=== PATIENT | male | born 1970 | race Caucasian/White ===

== ENCOUNTER 2020-06-20 11:07 | Emergency (ER) | payer OTHER ==
[~2020-06-20] VITALS: Ht 190.5 cm; Wt 104.3 kg
[2020-06-20] MEDS ORDERED: LISINOPRIL20 MG PO (11:38)
[2020-06-20] MEDS ORDERED: NORCO 7.5-3251 EACH PO (14:19)
== END 2020-06-20 14:45 | disposition home or self-care (01) ==
LOC: ED 11:07
DX: R10.31 Right lower quadrant pain (principal); Z91.030 Bee allergy status; Z88.8 Allergy status to other drugs, medicaments and biological substances; Z79.899 Other long term (current) drug therapy
CPT/HCPCS: 72193; 80053; 81001; 85025; 85651; 86140; 96374; 99284-25; A9270; J1885; Q9967

== ENCOUNTER 2020-06-27 10:38 | Emergency (ER) | payer OTHER ==
[~2020-06-27] VITALS: Ht 190.5 cm; Wt 104.3 kg
[~2020-06-27 10:38] MED LIST: LISINOPRIL20 MG PO; NORCO 7.5-3251 EACH PO
--- OUTSIDE RECORDS SUMMARY | 2020-06-27 10:42 | XMS ---
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 - 2 Visits in 30 Days CARE PROVIDERS There are no care providers on record at this time. Ellis has no Care Guidelines for this patient. Damon VISIT COUNT (12 MO.) [address] [facility] TOTAL 2 NOTE: Visits indicate total known visits. ED/C VISIT TRACKING (12 MO.) 06/27/2020 10:[address] [facility] 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
[2020-06-27] MEDS ORDERED: COLCHICINE0.6 M1 PO (11:09)
[2020-06-27] MEDS ORDERED: AUGMENTIN 875-1 EACH PO (11:09)
[2020-06-27] MEDS ORDERED: PRINIVIL20 MG PO (11:14)
== END 2020-06-27 11:21 | disposition home or self-care (01) ==
LOC: ED 10:38
DX: K57.92 Diverticulitis of intestine, part unspecified, without perforation or abscess without bleeding (principal); M10.9 Gout, unspecified; I10 Essential (primary) hypertension; F90.9 Attention-deficit hyperactivity disorder, unspecified type; F17.200 Nicotine dependence, unspecified, uncomplicated; Z91.030 Bee allergy status; Z88.8 Allergy status to other drugs, medicaments and biological substances; Z79.899 Other long term (current) drug therapy
CPT/HCPCS: 99283

== ENCOUNTER 2023-11-24 17:14 | Emergency (ER) | payer OTHER ==
[~2023-11-24] VITALS: Ht 190.5 cm; Wt 85.0 kg
[~2023-11-24 17:14] MED LIST changes: +AUGMENTIN 875-1 EACH PO; +COLCHICINE0.6 M1 PO; +PRINIVIL20 MG PO
[2023-11-24] MEDS ORDERED: HYDROCODONE BIT/ACETAMINOPHEN 5/325 MG 1 TAB HOME.PACK PO ONE (20:00)
[2023-11-24] MEDS ORDERED: HYDROCODON-ACE1 EA10 PO (20:05)
[2023-11-24 20:28] VITALS: BP 137/89
== END 2023-11-24 20:28 | disposition home or self-care (01) ==
LOC: ED 17:14
DX: S46.002A Unspecified injury of muscle(s) and tendon(s) of the rotator cuff of left shoulder, initial encounter (principal); M19.012 Primary osteoarthritis, left shoulder; M10.9 Gout, unspecified; F90.9 Attention-deficit hyperactivity disorder, unspecified type; F17.200 Nicotine dependence, unspecified, uncomplicated; Z91.030 Bee allergy status; X50.0XXA Overexertion from strenuous movement or load, initial encounter; Z88.6 Allergy status to analgesic agent; Z79.899 Other long term (current) drug therapy
CPT/HCPCS: 73030; 99283-25; A9270

== ENCOUNTER 2024-02-26 06:00 | Day surgery (SDC) | payer OTHER ==
[~2024-02-26] VITALS: Ht 190.5 cm; Wt 90.9 kg
[~2024-02-26 06:00] MED LIST changes: +HYDROCODON-ACE1 EA10 PO; +LACTATED RINGER'S 1,000 ML IV SCH
[2024-02-26 06:17] VITALS: BP 170/104
[2024-02-26 06:41] VITALS: BP 137/85
[2024-02-26] MEDS ORDERED: CEFAZOLIN SODIUM 2 GM/20 ML SYR IV SCH (07:00)
[2024-02-26] MEDS ORDERED: IBLOOD GLUCOSE TEST STRIP 1 EA TEST VI PRN ×2 (07:00→09:00)
[2024-02-26] MEDS ORDERED: LIDOCAINE HCL 1% 5 ML SDV INJ ONE (07:00)
[2024-02-26] MEDS ORDERED: TRANEXAMIC ACID 2,000 MG in SODIUM CHLORIDE 0.9% 100 ML IV SCH (07:00)
[2024-02-26] MEDS ORDERED: LIDOCAINE HCL 2% 5 ML SDV ONE (08:04)
[2024-02-26] MEDS ORDERED: Ropivacaine HCl 0.5% 30 ML VIAL ONE (08:04)
[2024-02-26] MEDS ORDERED: MIDAZOLAM HCL 2 MG/2 ML VIAL ONE (08:04)
[2024-02-26] MEDS ORDERED: DEXAMETHASONE SOD PHOS 4 MG/ML VIAL ONE ×2 (08:04→08:49)
[2024-02-26] MEDS ORDERED: propofoL 200 MG/20 ML VIAL ONE ×2 (08:25→08:49)
[2024-02-26] MEDS ORDERED: KETOROLAC TROMETHAMINE 15 MG/ML VIAL IV PRN (08:45)
[2024-02-26] MEDS ORDERED: HYDROCODONE/ACETA 7.5/325 TAB PO PRN (08:45)
[2024-02-26] MEDS ORDERED: NALOXONE HCL 0.4 MG SYR IV PRN ×2 (08:45→09:00)
[2024-02-26] MEDS ORDERED: ondansetron HCL 4 MG/2 ML VIAL ONE (08:49)
[2024-02-26] MEDS ORDERED: fentaNYL citrate 50 MCG/ML SDV IV PRN (09:00)
[2024-02-26] MEDS ORDERED: droPERidol 5 MG/2 ML VIAL IV PRN (09:00)
[2024-02-26] MEDS ORDERED: ondansetron HCL 4 MG/2 ML VIAL IV PRN (09:00)
[2024-02-26] MEDS ORDERED: HYDROCODON-ACE1 EA11 PO (10:18)
--- NOTE | 2024-02-26 10:44 | NUR ---
02/26/24 1044 Gale Barajas 1017 PT ARRIVES TO THE PACU WITH LARGE AMOUNTS OF SNORING NOTED, PERIOD OF APNEA NOTED. JAW THRUST USED TO MAINTAIN AIRWAY. PT RESPS EVEN AND UNLABORED. PT UNAROUSABLE. 1022 O2 MASK REMOVED. O2 SATS MID TO HIGH 90S. 1020 PT WAKES TO TACTILE STIMULI. PT SITS UP IN BED. PT EYES REMAIN CLOSED. PT CONFUSED AND MUMBLING TO HIMSELF. PT EASILY FALLS BACK TO SLEEP WITH HEAD TILTED FORWARD. HOB INCREASED AND SNORING MINIMALLY. 1032 PT WAKES TO VERBAL STIMULI AND OPENS HIS EYES AND LOOKS AROUND ROOM. RN CONTINUES TO REORIENT PT TO PACU. PT REPORTS 4/10 PAIN AND TOLERABLE AT THIS TIME. PT REPORTS BEING COLD AND WARM AIR AND BLANKETS GIVEN.
[2024-02-26 11:07] VITALS: BP 139/103
--- NOTE | 2024-02-26 11:18 | NUR ---
PT ARRIVED BACK TO AT APPROX 1100. REPROT RECEIVED FROM ADMITTING INTERVIEWER/EDITOR AT [facility]. PT REPORTS PAIN 4/10, TOLERABLE. DENIES N/V. ICE WATER, CRACKERS, AND APPLESAUCE GIVEN. CALL LIGHT WITHIN REACH. BILAT SIDERAILS IN PLACE FOR SAFETY. VS TAKEN. BP PER PTS BASELINE. IV SITE PATENT. DRSGS TO LAPRASCOPIC SITES X4 VISUALIZED WITH ADMITTING INTERVIEWER, CDI. PT REPORTS NUMBNESS REMAINS IN L ARM. PT UNABLE TO LIFT ARM, BUT CAN WIGGLE FINGERS. CRYO CUFF IN PLACE. PT DENIES ANY FURTHER QUESTIONS/NEEDS.
--- NOTE | 2024-02-26 11:19 | OR ---
[facility] [address], [place] [address] Signed DATE OF OPERATION: 02/26/2024 SURGEON: Deborah Sheikh MD PREOPERATIVE DIAGNOSIS: Rotator cuff tear, left shoulder. POSTOPERATIVE DIAGNOSIS: Rotator cuff tear, left shoulder. PROCEDURE PERFORMED: Left shoulder arthroscopy with rotator cuff repair. FERMENTER WINE: None. ANESTHESIA: General. BLOOD LOSS: Minimal. IMPLANTS: Four SwiveLock anchors with FiberTape. BRIEF HISTORY: Connor is a 53-year-old gentleman with pain and weakness in his shoulder. He had an acute on chronic injury and was felt indicated for rotator cuff repair after MRI. The risks, benefits, and alternatives were discussed with him and he elected to proceed. DESCRIPTION OF PROCEDURE: Once consent was obtained, he was taken to the operating room. After adequate anesthesia, he was placed in a beach chair position. All downside pressure points were well padded. The shoulder was injected with 15 mL 0.25% Marcaine with epinephrine as was the subacromial space. The standard posterior portal was made and the scope was introduced in the shoulder. ARTHROSCOPIC FINDINGS: Biceps was noted to be absent. The labrum was intact. The glenohumeral surfaces showed minimal chondromalacia. The rotator cuff was noted to be torn from the anterior margin Electronically Signed By: DEBORAH SHEIKH MD 02/26/24 1119 PATIENT NAME: CONNOR ONEIL OPERATIVE REPORT DATE OF : 68 REPORT #: [id number] PHYSICIAN: DEBORAH SHEIKH MD PCP: NO PRIMARY CARE PHYSICIAN REPORT IS CONFIDENTIAL AND NOT TO BE RELEASED WITHOUT AUTHORIZATION [facility] [address], [place] [address] Signed of the supraspinatus about 2 cm posteriorly. It was minimally retracted. The subacromial space showed minimal bursitis. DESCRIPTION OF OPERATION: Standard diagnostic arthroscopy was undertaken as noted above. The scope was then withdrawn, placed in the subacromial space and the bursal remnants were removed. Soft tissue was removed off the tuberosity and the tuberosity was decorticated slightly using the shaver. The edges of the rotator cuff were trimmed back to good tissue. The 1st medial row anchor was placed along the articular margin anteriorly. The 2nd was placed posteriorly about a cm or little bit more. The two fiber tapes on the anchor were then placed through the rotator cuff using a scorpion and brought out separate stab incisions. The middle portal was then used to place the two lateral anchors. The sutures from the two medial anchors were then crisscrossed and placed through the lateral anchors into the tuberosity under appropriate tension. Excellent footprint was obtained. Good repair tissue was noted. The suture ends were all then cut and the shoulder was taken through range of motion. Stable repair was noted. The scope was withdrawn. Portals were closed with 3-0 nylon and dressed with Allevyn and OpSite. He tolerated the procedure well. All sponge, needle, and instrument counts were correct. Deborah Sheikh MD BA/SAVANNAHL /[id number] Copies: ~ Electronically Signed By: DEBORAH SHEIKH MD 02/26/24 1119 PATIENT NAME: CLARICECONNORANGEL DESAI OPERATIVE REPORT DATE OF : 68 REPORT #: [id number] PHYSICIAN: DEBORAH SHEIKH MD PCP: NO PRIMARY CARE PHYSICIAN REPORT IS CONFIDENTIAL AND NOT TO BE RELEASED WITHOUT AUTHORIZATION
--- NOTE | 2024-02-26 12:22 | NUR ---
1220 PT ABLE TO AMBULATE TO BATHROOM AND VOID 550 MLS URINE. PT BACK IN BED WITH CALL LIGHT WITHIN REACH, BED LOW AND LOCKED. PO FLUIDS AND SNACKS AT BEDSIDE. ICE BACK IN PLACE ON SHOULDER.
[2024-02-26 13:08] VITALS: BP 146/104
--- NOTE | 2024-02-26 13:10 | NUR ---
INTO PTS ROOM FOR ROUTINE REASSESSMENT AND DISCHARGE TEACHING. PTS SON ARRIVED TO PTS ROOM FOR DISCHARGE INSTRUCTIONS WELL. BP REMAINS ELEVATED, HOWEVER BASELINE FOR PT. PT HAS APPT SCHEDULED WITH A PCP TO ESTABLISH CARE AND WAS ADVISED TO DISCUSS ELEVATED BP'S WELL GIVEN A LETTER REGARDING HIS STOP BANG SCORE DURING SURGICAL STAY IN RELATION TO SUSPECTED SLEEP APNEA. ANESTHESIA AWARE OF ELEVATED BP'S AND REPORTS BASELINE FOR PT. PT REPORTS PAIN WELL MANAGED WITH SCORE OF 3/10. IV REMOVED FROM RFA, TIP OBSERVED TO BE INTACT. PRESSURE DRSG APPLIED USING GAUZE AND COBAN. DISCHARGE INSTRUCTIONS GONE OVER WITH PT. PT WAS PROVIDED WITH DR. LAROSE HANDOUT ON SHOULDER SURGERIES WITH AFTER CARE INSTRUCTIONS. PT ALSO WAS PROVIDED WITH DR. LAROSE AFTER HOURS EMERGENCY NUMBER AND POST OP APPT INFO FOR 03/08/24 AT 1415. OBSERVED SURGICAL DRSGS AND NO ACUTE CHANGES NOTED. PT DENIES N/V. PT HAS VOIDED 500 ML OF PALE, YELLOW URINE AND HAS TOLERATED FOOD AND FLUIDS W/O ISSUES THUS FAR. PT REMINDED OF IMPORTANCE TO WEAR SLING TO LUE AT ALL TIMES AND USING CRYO CUFF PER INSTRUCTIONS GIVEN. PT AND HIS SON VERBALIZED UNDERSTANDING AND DENY AND FURTHER QUESTIONS/CONCERNS. PT WITH PERSONAL BELONGINGS AND SON AT [facility] TO ASSIST IN DRESSING. CALL LIGHT WITHIN PT REACH.
--- NOTE | 2024-02-26 13:15 | NUR ---
SON TOOK ALL PTS PERSONAL BELONGINGS OUT TO CAR AND PULLED CAR AROUND FRONT. PT TRANSPORTED OFF UNIT VIA WC TO PASSENGER SIDE OF SON'S CAR.
[2024-02-26] MEDS ORDERED: CELECOXIB 200 MG CAP PO SCH (17:00)
== END 2024-02-26 13:15 | disposition home or self-care (01) ==
LOC: DS 06:00
PROVIDERS: ATTEND Specialist
PROC: 0LM24ZZ Reattachment of Left Shoulder Tendon, Percutaneous Endoscopic Approach (ICD-10-PCS; principal; 2024-02-26 09:55)
DX: M75.122 Complete rotator cuff tear or rupture of left shoulder, not specified as traumatic (principal); I10 Essential (primary) hypertension; F90.9 Attention-deficit hyperactivity disorder, unspecified type; F43.10 Post-traumatic stress disorder, unspecified; Z87.891 Personal history of nicotine dependence; Z88.8 Allergy status to other drugs, medicaments and biological substances
CPT/HCPCS: J0690; J1100; J2001; J2250; J2405; J2704; J2795; J7121

== ENCOUNTER 2024-05-30 12:17 | Emergency (ER) | payer OTHER ==
[~2024-05-30] VITALS: Ht 190.5 cm; Wt 98.2 kg
[~2024-05-30 12:17] MED LIST changes: +HYDROCODON-ACE1 EA11 PO; -LACTATED RINGER'S 1,000 ML IV SCH
[2024-05-30] MEDS ORDERED: KETOROLAC TROMETHAMINE 30 MG/ML VIAL IV ONE (12:45)
[2024-05-30] MEDS ORDERED: methylPREDNISolone SOD SUCC 125 MG/2 ML VIAL IV ONE (12:45)
[2024-05-30] MEDS ORDERED: diphenhydrAMINE HCL 50 MG/ML VIAL IV ONE (12:45)
[2024-05-30] MEDS ORDERED: PREDNISONE20 MG PO (13:11)
[2024-05-30] MEDS ORDERED: KETOROLAC TROME10 MG PO (13:11)
[2024-05-30 13:20] VITALS: BP 123/87
== END 2024-05-30 13:20 | disposition home or self-care (01) ==
LOC: ED 12:17
DX: T63.441A Toxic effect of venom of bees, accidental (unintentional), initial encounter (principal); R22.2 Localized swelling, mass and lump, trunk; F17.200 Nicotine dependence, unspecified, uncomplicated; Z88.6 Allergy status to analgesic agent; Z91.030 Bee allergy status; Z91.018 Allergy to other foods
CPT/HCPCS: 96374; 96375; 99282-25; J1200; J1885; J2919

== ENCOUNTER 2024-06-02 08:49 | Emergency (ER) | payer OTHER ==
[~2024-06-02] VITALS: Ht 190.5 cm; Wt 99.6 kg
[~2024-06-02 08:49] MED LIST changes: +KETOROLAC TROME10 MG PO; +PREDNISONE20 MG PO
[2024-06-02] MEDS ORDERED: AMOXICILLIN/CLAVULANATE K 875 MG TAB PO ONE (09:15)
[2024-06-02] MEDS ORDERED: AMOX TR-K CLV1 EAC1 PO (09:38)
[2024-06-02 09:43] VITALS: BP 163/115
== END 2024-06-02 09:43 | disposition home or self-care (01) ==
LOC: ED 08:49
DX: S61.051A Open bite of right thumb without damage to nail, initial encounter (principal); S61.255A Open bite of left ring finger without damage to nail, initial encounter; S61.052A Open bite of left thumb without damage to nail, initial encounter; S51.852A Open bite of left forearm, initial encounter; F17.200 Nicotine dependence, unspecified, uncomplicated; W54.0XXA Bitten by dog, initial encounter; Z79.52 Long term (current) use of systemic steroids; Z79.899 Other long term (current) drug therapy; Z88.6 Allergy status to analgesic agent; Z91.018 Allergy to other foods; Z91.030 Bee allergy status
CPT/HCPCS: 99283

== ENCOUNTER 2024-11-03 08:42 | Emergency (ER) | payer OTHER ==
[~2024-11-03] VITALS: Ht 190.5 cm; Wt 98.9 kg
[~2024-11-03 08:42] MED LIST changes: +AMOX TR-K CLV1 EAC1 PO
[2024-11-03] MEDS ORDERED: METHYLPHENIDATE20 MG PO (09:02)
[2024-11-03] MEDS ORDERED: ALLOPURINOL100 MG PO (09:02)
[2024-11-03] MEDS ORDERED: VENLAFAXINE HC150 M1 PO (09:03)
[2024-11-03 10:00] VITALS: BP 164/90
[2024-11-03] MEDS ORDERED: ACETAMINOPHEN 500 MG TAB PO ONE (10:00)
== END 2024-11-03 10:00 | disposition home or self-care (01) ==
LOC: ED 08:42
DX: S62.334A Displaced fracture of neck of fourth metacarpal bone, right hand, initial encounter for closed fracture (principal); M10.9 Gout, unspecified; F17.200 Nicotine dependence, unspecified, uncomplicated; Z91.018 Allergy to other foods; Z91.030 Bee allergy status; Z88.6 Allergy status to analgesic agent; Z79.899 Other long term (current) drug therapy; W19.XXXA Unspecified fall, initial encounter
CPT/HCPCS: 29125; 73130; 99283; A9270

== ENCOUNTER 2025-06-09 08:15 | Emergency (ER) | payer OTHER ==
[~2025-06-09] VITALS: Ht 190.5 cm; Wt 92.0 kg
[~2025-06-09 08:15] MED LIST changes: +ALLOPURINOL100 MG PO; +METHYLPHENIDATE20 MG PO; +VENLAFAXINE HC150 M1 PO
[2025-06-09] MEDS ORDERED: HYDROCODON-ACE1 EA10 PO (09:21)
[2025-06-09] MEDS ORDERED: ONDANSETRON ODT4 MG PO (09:21)
[2025-06-09] MEDS ORDERED: PREDNISONE20 MG PO (09:21)
[2025-06-09] MEDS ORDERED: HYDROCODONE/ACETA 5/325 TAB PO ONE (09:30)
[2025-06-09] MEDS ORDERED: predniSONE 20 MG TAB PO ONE (09:30)
[2025-06-09] MEDS ORDERED: ONDANSETRON 4 MG TAB ODT SL ONE (09:30)
[2025-06-09 09:35] VITALS: BP 177/110
== END 2025-06-09 09:35 | disposition home or self-care (01) ==
LOC: ED 08:15
DX: M25.562 Pain in left knee (principal); M10.9 Gout, unspecified; F17.200 Nicotine dependence, unspecified, uncomplicated; Z91.018 Allergy to other foods; Z91.030 Bee allergy status; Z88.6 Allergy status to analgesic agent; Z79.899 Other long term (current) drug therapy
CPT/HCPCS: 73560; 99283; A9270; J7512